=== PATIENT | female | born 2000 | race American Indian/Alaskan Native ===

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

== ENCOUNTER 2018-11-25 18:02 | Emergency (ER) | payer MEDICAID ==
--- NOTE | 2018-11-25 18:34 | EDM.PDOC ---
ED HPI GENERAL MEDICAL PROBLEM - General Source of Information: Reports: Patient, RN, RN Notes Reviewed History Limitations: Reports: No Limitations - History of Present Illness Onset: Today, Sudden Abdomen Pain Score (Numeric/FACES): 8 <Faby Tai - Last Filed: 11/25/18 18:49> <Jonathon Bhatiahen - Last Filed: 11/25/18 20:58> - General Stated Complaint: ALOT OF PAIN Time Seen by Provider: 11/25/18 18:34 - History of Present Illness INITIAL COMMENTS - FREE TEXT/NARRATIVE: Pt to ER with c/o low abdominal pain. Patient rates pain /10. States the pain is in the wraps around the lower abdomen and the lower back. States her LMP was September 22, making her EDC June 22. States no vaginal bleeding. Denies fever, chills, diarrhea. Last BM was this am and was normal for her. Admits to nausea and vomiting this morning. Admits to frequency with urination. Denies recent intercourse. States she has an appointment in the clinic tomorrow but states she decided to come in [facility]. (Faby Tai) - Related Data Allergies Allergy/AdvReac Type Severity Reaction Status Date / Time oxycodone Allergy Itching Verified 12/26/17 14:54 Home Meds: Home Meds . [No Known Home Meds] 12/26/17 [History] Past Medical History - Past Health History Medical/Surgical History: Denies Medical/Surgical History HEENT History: Reports: Other (See Below) Other HEENT History: frequent tonsilitis Cardiovascular History: Reports: None Respiratory History: Reports: None Gastrointestinal History: Reports: None Genitourinary History: Reports: [employer] HE[employer] History: Reports: None Musculoskeletal History: Reports: None Neurological History: Reports: None Psychiatric History: Reports: None Endocrine/Metabolic History: Reports: Obesity/BMI 30+ Hematologic History: Reports: None Immunologic History: Reports: None Oncologic (Cancer) History: Reports: None Dermatologic History: Reports: None - Infectious Disease History Infectious Disease History: Reports: None - Past Surgical History Head Surgeries/Procedures: Reports: None HEENT Surgical History: Reports: Adenoidectomy, Tonsillectomy <Faby Tai - Last Filed: 11/25/18 18:49> Social & Family History - Family History Family Medical History: Noncontributory - Caffeine Use Caffeine Use: Reports: None - Living Situation & Occupation Living situation: Reports: Single, Alone <AbidaRogerFaby - Last Filed: 11/25/18 18:49> ED ROS GENERAL - Review of Systems Review Of Systems: ROS reveals no pertinent complaints other than HPI. <AbidaFaby - Last Filed: 11/25/18 18:49> ED EXAM - Physical Exam Exam: See Below Exam Limited By: No Limitations General Appearance: Alert, WD/WN, Mild Distress Eye Exam: Bilateral Eye: EOMI, Normal Inspection Ears: Normal External Exam, Hearing Grossly Normal Nose: Normal Inspection Throat/Mouth: Normal Inspection, Normal Voice, No Airway Compromise Head: Atraumatic, Normocephalic Neck: Normal Inspection Respiratory/Chest: No Respiratory Distress, Lungs Clear, Normal Breath Sounds, No Accessory Muscle Use, Chest Non-Tender Cardiovascular: Normal Peripheral Pulses, Regular Rate, Rhythm, No Edema, No Gallop, No JVD, No Murmur, No Rub GI/Abdominal Exam: Normal Bowel Sounds, Soft, Non-Tender, No Organomegaly, No Distention, No Abnormal Bruit, No Mass, Pelvis Stable Rectal Exam: Deferred Back Exam: Normal Inspection, Full Range of Motion, CVA Tenderness (L), CVA Tenderness (R), Other (tenderness lower back) Extremities: Normal Inspection, Normal Range of Motion, Non-Tender, Normal Capillary Refill, No Pedal Edema Neurological: Alert, Oriented, CN II-XII Intact, Normal Cognition, Normal Gait, Normal Reflexes, No Motor/Sensory Deficits Psychiatric: Normal Affect, Normal Mood Skin Exam: Warm, Dry, Intact, Normal Color, No Rash Lymphatic: No Adenopathy <AbidaFaby - Last Filed: 11/25/18 18:49> Course <TaiFaby - Last Filed: 11/25/18 18:49> <Malvin Bhatia - Last Filed: 11/25/18 20:58> - Vital Signs Last Recorded V/S: Last Vital Signs Temp 37.7 C 11/25/18 18:34 Pulse 110 H 11/25/18 18:34 Resp 20 11/25/18 18:34 BP 143/89 H 11/25/18 18:34 Pulse Ox 100 11/25/18 18:34 - Orders/Labs/Meds Orders: Active Orders 24 hr Category Date Time Status OB Ltd 1 or More Fetus [US] Urgent Exams 11/25/18 19:37 Taken CULTURE URINE [RM] Stat Lab 11/25/18 18:42 Received Labs: Laboratory Tests 11/25/18 11/25/18 11/25/18 Range/Units 18:42 18:42 18:42 WBC (5.0-10.0) 10^3/uL RBC (4.2-5.4) 10^6/uL Hgb (12.0-16.0) g/dL Hct (37.0-47.0) % MCV (80-100) fL MCH (27.0-34.0) pg MCHC (33.0-35.0) g/dL Plt Count (150-450) 10^3/uL Neut % (Auto) (42.2-75.2) % Lymph % (Auto) (20.5-50.1) % [place] % (Auto) (2-8) % Eos % (Auto) (1.0-3.0) % Baso % (Auto) (0.0-1.0) % Sodium (135-145) mmol/L Potassium (3.6-5.0) mmol/L Chloride (101-111) mmol/L Carbon Dioxide (21.0-31.0) mmol/L Anion Gap BUN (7-18) mg/dL Creatinine (0.6-1.3) mg/dL Est Cr Clr Drug Dosing mL/min Estimated GFR (MDRD) BUN/Creatinine Ratio Glucose (74-105) mg/dL Calcium (8.4-10.2) mg/dl Total Bilirubin (0.2-1.0) mg/dL AST (10-42) IU/L ALT (10-60) IU/L Alkaline Phosphatase (42-121) IU/L Total Protein (6.7-8.2) g/dl Albumin (3.2-5.5) g/dl Globulin Albumin/Globulin Ratio HCG, Quant (0-25) mIU/ml Beta HCG, Quant mIU/ml Urine Color Yellow (YELLOW) Urine Appearance Slightly cloudy (CLEAR) Urine pH 7.0 (5.0-9.0) Ur Specific [place] 1.010 (1.005-1.030) Urine Protein Negative (NEGATIVE) Urine Glucose (UA) Negative (NEGATIVE) Urine Ketones Negative (NEGATIVE) Urine Occult Blood Negative (NEGATIVE) Urine Nitrite Negative (NEGATIVE) Urine Bilirubin Negative (NEGATIVE) Urine Urobilinogen 0.2 (0.2-1.0) mg/dL Ur Leukocyte Esterase Small H (NEGATIVE) Urine RBC Not seen /HPF Urine WBC 0-5 (0-5/HPF) /HPF Ur Epithelial Cells Few (NOT SEEN) /HPF Urine Bacteria Few (0-FEW/HPF) /HPF Urine Mucus Few H (NOT SEEN) /LPF Urine HCG, Qual Positive Urine Opiates Screen Negative (NEGATIVE) Ur Oxycodone Screen Negative (NEGATIVE) Urine Methadone Screen Negative (NEGATIVE) Ur Barbiturates Screen Negative (NEGATIVE) U Tricyclic Antidepress Negative (NEGATIVE) Ur Phencyclidine Scrn Negative (NEGATIVE) Ur Amphetamine Screen Negative (NEGATIVE) U Methamphetamines Scrn Negative (NEGATIVE) Urine MDMA Screen Negative (NEGATIVE) U Benzodiazepines Scrn Negative (NEGATIVE) Urine Cocaine Screen Negative (NEGATIVE) U Marijuana (THC) Screen Negative (NEGATIVE) 11/25/18 11/25/18 11/25/18 Range/Units 18:47 18:47 18:47 WBC 7.9 (5.0-10.0) 10^3/uL RBC 4.85 (4.2-5.4) 10^6/uL Hgb 13.2 (12.0-16.0) g/dL Hct 39.1 (37.0-47.0) % MCV 80.6 D (80-100) fL MCH 27.2 (27.0-34.0) pg MCHC 33.8 (33.0-35.0) g/dL Plt Count 362 (150-450) 10^3/uL Neut % (Auto) 59.7 (42.2-75.2) % Lymph % (Auto) 26.6 (20.5-50.1) % [place] % (Auto) 12.2 H (2-8) % Eos % (Auto) 1.4 (1.0-3.0) % Baso % (Auto) 0.1 (0.0-1.0) % Sodium 137 (135-145) mmol/L Potassium 4.3 (3.6-5.0) mmol/L Chloride 105 (101-111) mmol/L Carbon Dioxide 25.0 (21.0-31.0) mmol/L Anion Gap 11.3 BUN 6 L (7-18) mg/dL Creatinine 0.5 L (0.6-1.3) mg/dL Est Cr Clr Drug Dosing 181.05 mL/min Estimated GFR (MDRD) > 60 BUN/Creatinine Ratio 12.00 Glucose 86 (74-105) mg/dL Calcium 9.1 (8.4-10.2) mg/dl Total Bilirubin 0.6 (0.2-1.0) mg/dL AST 15 (10-42) IU/L ALT 18 (10-60) IU/L Alkaline Phosphatase 23 L (42-121) IU/L Total Protein 7.5 (6.7-8.2) g/dl Albumin 3.8 (3.2-5.5) g/dl Globulin 3.7 Albumin/Globulin Ratio 1.03 HCG, Quant > 1359 H (0-25) mIU/ml Beta HCG, Quant 248337 mIU/ml Urine Color (YELLOW) Urine Appearance (CLEAR) Urine pH (5.0-9.0) Ur Specific [place] (1.005-1.030) Urine Protein (NEGATIVE) Urine Glucose (UA) (NEGATIVE) Urine Ketones (NEGATIVE) Urine Occult Blood (NEGATIVE) Urine Nitrite (NEGATIVE) Urine Bilirubin (NEGATIVE) Urine Urobilinogen (0.2-1.0) mg/dL Ur Leukocyte Esterase (NEGATIVE) Urine RBC /HPF Urine WBC (0-5/HPF) /HPF Ur Epithelial Cells (NOT SEEN) /HPF Urine Bacteria (0-FEW/HPF) /HPF Urine Mucus (NOT SEEN) /LPF Urine HCG, Qual Urine Opiates Screen (NEGATIVE) Ur Oxycodone Screen (NEGATIVE) Urine Methadone Screen (NEGATIVE) Ur Barbiturates Screen (NEGATIVE) U Tricyclic Antidepress (NEGATIVE) Ur Phencyclidine Scrn (NEGATIVE) Ur Amphetamine Screen (NEGATIVE) U Methamphetamines Scrn (NEGATIVE) Urine MDMA Screen (NEGATIVE) U Benzodiazepines Scrn (NEGATIVE) Urine Cocaine Screen (NEGATIVE) U Marijuana (THC) Screen (NEGATIVE) - Re-Assessments/Exams Free Text/Narrative Re-Assessment/Exam: 11/25/18 20:55 results discussed with pt who is feeling fine right now. states she got worried and grandma made her. (Malvin Bhatia) Departure <Faby Tai - Last Filed: 11/25/18 18:49> - Departure Time of Disposition: 20:57 Condition: Good <Malvin Bhatia - Last Filed: 11/25/18 20:58> - Departure Disposition: Home, Self-Care 01 Clinical Impression: Intrauterine , related abdominal pain of lower quadrant, antepartum - Discharge Information Instructions: Abdominal Pain During Forms: ED Department Discharge Additional Instructions: 1) rest 2) avoid bending lifting straining next 4 to 5 days 3) follow up at clinic 4) recheck if there is any change or concern - My Orders Last 24 Hours: My Active Orders 11/25/18 19:37 OB Ltd 1 or More Fetus [US] Urgent - Assessment/Plan Last 24 Hours: My Active Orders 11/25/18 19:37 OB Ltd 1 or More Fetus [US] Urgent
[2018-11-25 18:36] VITALS: BP 143/89; PULSE 110
[2018-11-25 19:14] LABS: ANION GAP 11.3; CHLORIDE,CL 105 mmol/L (101-111); SODIUM,NA 137 mmol/L (135-145)
== END 2018-11-25 21:06 | disposition home or self-care (01) ==
LOC: DL.ED 18:02
DX: O26.891 Other specified pregnancy related conditions, first trimester (principal); R10.30 Lower abdominal pain, unspecified; M54.5 Low back pain; O99.211 Obesity complicating pregnancy, first trimester; Z88.6 Allergy status to analgesic agent; Z98.890 Other specified postprocedural states; Z3A.10 10 weeks gestation of pregnancy
CPT/HCPCS: 36415; 76815; 80053; 80305-QW; 81001; 81025; 84702; 85025; 87086; 87088; 87186; 99284-25

== ENCOUNTER 2019-06-22 11:53 | Inpatient (IN) | payer MEDICAID ==
[~2019-06-22 11:53] MED LIST: Acetaminophen 325 MG Tab PO PRN; Carboprost Tromethamine 250 MCG/1 ML Amp IM PRN; Lactated Ringers 1,000 ML IV ONE; Lidocaine 1% 30 ML SDV INJECT PRN; Methylergonovine 0.2 MG/1 ML Amp IM PRN; Misoprostol 400 MCG (4 X 100 MCG TAB) RECTAL PRN; Ondansetron 4 MG/2 ML SDV IVPUSH PRN; Oxytocin/Normal Saline 30 UNIT/500 ML BAG IV SCH; Penicillin G Potassium 3 MILLUNITS in Sodium Chloride 0.9% 100 ML IV SCH; Penicillin G Potassium 5 MILLUNITS in Sodium Chloride 0.9% 100 ML IV ONE; Sodium Chloride 0.9% 10 ML Syringe FLUSH PRN; Tranexamic Acid 1,000 MG in Sodium Chloride 0.9% 100 ML IV PRN; fentaNYL 100 MCG/2 ML SDV IVPUSH PRN
[2019-06-22] MEDS ORDERED: Penicillin G Potassium 5 MILLUNITS in Sodium Chloride 0.9% 100 ML IV ONE (13:00)
[2019-06-22] MEDS: Lactated Ringers 1,000 ML IV SCH ×2 (13:15→17:15)
[2019-06-22] MEDS: Misoprostol 25 MCG (1/4 of 100 MCG) Tab VAG PRN ×2 (14:15→18:30)
[2019-06-22] MEDS: Penicillin G Potassium 3 MILLUNITS in Sodium Chloride 0.9% 100 ML IV SCH ×2 (17:51→21:35)
[2019-06-22] MEDS ORDERED: hydrOXYzine HCl 25 MG Tab PO PRN (21:39)
[2019-06-22] MEDS ORDERED: Oxytocin/Normal Saline 30 UNIT/500 ML BAG IV SCH (21:45)
[2019-06-23] MEDS: Penicillin G Potassium 3 MILLUNITS in Sodium Chloride 0.9% 100 ML IV SCH ×3 (01:03→08:52)
[2019-06-23] MEDS: Lactated Ringers 1,000 ML IV SCH ×2 (01:16→08:54)
[2019-06-23] MEDS ORDERED: EPINEPHrine 1 MG/1 ML Amp ONE ×2 (01:25→01:30)
[2019-06-23] MEDS ORDERED: fentaNYL 100 MCG/2 ML SDV ONE ×2 (01:26→07:46)
--- NOTE | 2019-06-23 03:25 | PN ---
DATE: 06/23/2019 TIME: 2:45 a.m. SUBJECTIVE: Induction day #2, the patient has been tolerating labor as expected and has been in the tub for pain relief and received a dose of IV fentanyl and then an intrathecal was placed about 45 minutes ago with 30 mcg of fentanyl and epinephrine. However, the patient is still able to move her legs complaining of still feeling the contractions and pelvic pressure stronger than she feels is acceptable and only pain relief of about 25%. We called the professor of forest planning back to re-evaluate and he is going to repeat the procedure and add a different medication. OBJECTIVE: General: The patient is mildly uncomfortable with contractions, but certainly not writhing, rocking in pain, and asking for a like she was earlier. Vital Signs: Blood pressure is 134/94, pulse 106, O2 saturations 94% on room air. Obstetrics: heart tones are tracing at a baseline of 125 beats per minute with moderate [id number] variability. Accelerations are noted. [place] showing contractions every minute to 2 minutes. Cervix 4.5 cm, 90% effaced, -2 station. I can feel the baby's head and I do not feel a bag of water. Did have some clear drainage on my gloves, so I suspect that she has had a spontaneous rupture of membranes. ASSESSMENT: 1. A 40 and 4/7 weeks' intrauterine . 2. Group B strep positive. 3. Anemia of . 4. Status post intrathecal and still feeling discomfort. PLAN: After the repeat intrathecal, we will see how she does. Discussed with her that option for section because of pain is not something that is done and unfortunately she would have to tolerate labor despite that and so hopefully this re-dosing will help and the patient can get some rest. We will augment with Pitocin if needed should her contractions space out or she not make adequate cervical change. Her questions at this time have been answered. MOD /[id number] MTDD
[2019-06-23] MEDS ORDERED: ePHEDrine 50 MG/ML SDV IV PRN (03:52)
[2019-06-23] MEDS ORDERED: Acetaminophen 325 MG Tab PO PRN (10:33)
[2019-06-23] MEDS ORDERED: Benzocaine/Menthol 20%-0.5% Spray 56 GM Canister TOP PRN (10:33)
[2019-06-23] MEDS ORDERED: Tranexamic Acid 1,000 MG in Sodium Chloride 0.9% 100 ML IV PRN (10:33)
[2019-06-23] MEDS ORDERED: Carboprost Tromethamine 250 MCG/1 ML Amp IM PRN (10:33)
[2019-06-23] MEDS ORDERED: Misoprostol 400 MCG (4 X 100 MCG TAB) RECTAL PRN (10:33)
[2019-06-23] MEDS ORDERED: Simethicone 80 MG Tab.Chew PO PRN (10:33)
[2019-06-23] MEDS: Ibuprofen 800 MG Tab PO PRN ×2 (12:28→20:07)
[2019-06-23] MEDS: Docusate Sodium 100 MG Cap PO PRN (20:07)
[2019-06-23] MEDS: Ferrous Sulfate 325 MG Tab PO SCH (20:07)
[2019-06-23] MEDS: Acetaminophen/HYDROcodone 325-5 MG Tab PO PRN (20:07)
[2019-06-24] MEDS: Acetaminophen/HYDROcodone 325-5 MG Tab PO PRN ×5 (04:49→20:42)
[2019-06-24] MEDS: Ibuprofen 800 MG Tab PO PRN ×3 (04:49→20:43)
[2019-06-24] MEDS: Ferrous Sulfate 325 MG Tab PO SCH ×2 (08:22→20:41)
[2019-06-24] MEDS: Prenatal Multivitamin with Calcium/Folic Acid/Iron Tab PO SCH (08:22)
[2019-06-24] MEDS: Docusate Sodium 100 MG Cap PO PRN ×2 (08:22→20:41)
--- NOTE | 2019-06-24 12:45 | PCM48HPAN ---
Post Anesthesia Note - EVALUATION WITHIN 48HRS OF ANESTHETIC Patient Participated in Evaluation: Yes Respiratory Function Stable: Yes Airway Patent: Yes Cardiovascular Function Stable: Yes Hydration Status Stable: Yes Pain Control Satisfactory: No (c/o back pain and slight headache. Being managed with meds.) Nausea and Vomiting Control Satisfactory: Yes Mental Status Recovered: Yes Vital Signs: Last Vital Signs Temp 98.4 F 06/24/19 08:00 Pulse 79 06/24/19 08:00 Resp 16 06/24/19 08:00 BP 123/67 06/24/19 08:00 Pulse Ox 98 06/24/19 08:00 - COMMENTS/OBSERVATIONS Free Text/Narrative:: Post IT times 2 for labor analgesia. Complaining of back pain with a slight headache. Resting in bed with cool compress on forehead. Will continue to monitor.
--- NOTE | 2019-06-24 12:46 | DEL ---
DATE: 06/23/2019 PREPROCEDURE DIAGNOSES: 1. Forty and 4/7 weeks' intrauterine by 16-week ultrasound. 2. 1, para 0. 3. Blood type O positive, rubella immune, group B Strep positive bacteriuria. 4. Low back pain in . 5. Anemia of . 6. History of marijuana use. 7. Nausea and vomiting in early . 8. Bacterial vaginosis 1st trimester. 9. Urinary tract infection 3rd trimester. POSTPROCEDURE DIAGNOSES: 1. Forty and 4/7 weeks' intrauterine by 16-week ultrasound. 2. 1, para 1-0-0-1, status post spontaneous vaginal delivery with earlier assistance in stage II for maternal exhaustion and need to improve decent and first-degree laceration repair. 3. Blood type O positive, rubella immune, group B Strep positive bacteriuria. 4. Low back pain in . 5. Anemia of . 6. History of marijuana use. 7. Nausea and vomiting in early . 8. Bacterial vaginosis 1st trimester. 9. Urinary tract infection 3rd trimester. BRIEF HISTORY: A is a 19-year-old female brought to the hospital yesterday for induction of labor due to postdates and concern for a large baby. So, she was initiated with a couple of doses of Cytotec and then switched over to IV Pitocin. She had spontaneous rupture of membranes and received 2 total intrathecal for anesthesia. She progressed through labor quite nicely and was in stage I for probably about 11 hours, stage II was 1 hour, stage III was 23 minutes. When the patient started pushing, she initially was doing okay, but by 30 minutes it was clear that she was not going to be putting forth appropriate effort to expect vaginal delivery, so I was called over to assist with coaching. Had to be quite blunt with the patient about her need to contribute sufficient effort. I did offer vacuum assistance to see if we can get the baby delivered down faster. Baby had a lot of hair, so we had 2 true pop offs, and after that inadequate suction to maintain. Therefore, after the baby was , we discontinued vacuum assist. The operating room crew was in-house and aware of what we were doing, the bladder had been emptied. We had given the patient options for continued efforts and laboring down. She was becoming more physically fatigued as well as mentally fatigued and unable to really hold herself emotionally together well. Kiwi vacuum was used and kept in the green zone when it was applied and it was on for a total of about 10 minutes. We were only able to pull through 5 contractions because of the pop-offs. The patient had been verbally consented prior to procedure and understood increased risk of vaginal lacerations, scalp lacerations, bleeding for the baby, bleeding for herself, increased risk of shoulder dystocia, increased risk of operative delivery, and had verbalized understanding. Nurses were in the room to witness that discussion, and exit strategy was available. After we got the baby at least to , mother was able to then put forth better effort and ultimately deliver spontaneously. PROCEDURE DETAILS: With the patient in dorsal lithotomy position, she delivered a viable female infant in the OA position over intact perineum. The baby was dried and stimulated and placed upon mother's abdomen. After a delay, 3-vessel umbilical cord was doubly clamped, cut, cord blood sample obtained, and then attempted to deliver placenta, but it was not coming readily. Therefore, labia and vagina inspected. There was a first-degree laceration that required repair which was performed with 3-0 Vicryl and no additional anesthesia was needed, which was a simple running stitch with approximately 4 throws and she tolerated that well. The placenta was then delivered with aggressive uterine massage and gentle cord traction at 23 minutes, inspected and intact. FINDINGS: Normal-appearing placenta. First-degree laceration. Term female infant, scores 8 and 9. Weight 3920g and 20 inches long. COMPLICATIONS: None. ESTIMATED BLOOD LOSS: 250 mL. DISPOSITION: Mother and baby to stay in the room to initiate at this time. [facility] /[id number] [place]
--- NOTE | 2019-06-24 16:23 | PN ---
DATE: 06/24/2019 SUBJECTIVE: Post delivery day #1. The patient has been doing well. She has been ambulating, tolerating a regular diet, voiding without difficulties. Has not yet had a bowel movement. Reports that the bleeding is moderate. No chest pain or shortness of breath. Breast milk seems to be coming in and she is having a little bit of difficulty with , primarily due to some flat nipples, but overall nurses are helping with her and the breast shield seems to be working as well. Also, reports some back pain. It should be noted the patient had approximately 5 or 6 needle punctures for her essentially 2-stage first intrathecal and 2nd intrathecal, had some back pain even preexisting prior to delivery. Overnight, she has had hydrocodone, ice packs, K-pad and other modalities to help managing things. She is anticipating staying through until tomorrow so she can get some additional help with before going home. PHYSICAL EXAMINATION: General: Pleasant patient, in no acute distress. Vital Signs: Temperature is 98.4, pulse 79, blood pressure 123/67, respiratory rate of 16, and O2 saturations 98% on room air. Heart: Regular without murmur. Lungs: Clear to auscultation bilaterally. Abdomen: Soft and nontender. Fundus is firm and below the umbilicus. Extremities: Trace edema. No erythema or tenderness noted. LABORATORY DATA: Hemoglobin down to 9.2, platelets 303. ASSESSMENT: 1. Post vaginal delivery day #1. 2. Anemia of and acute blood loss. 3. Back pain, acute on chronic. 4. History of marijuana use. 5. mother. PLAN: Continue routine cares with additional attention to helping her with her back pain and . Otherwise, anticipate discharge home tomorrow. We will see if she ends up needing to go home with a prescription of hydrocodone or not. Her grandmother will continue to stay with her here in the hospital, and all of their questions were answered. [facility] /[id number] [place]
[2019-06-25] MEDS: Acetaminophen/HYDROcodone 325-5 MG Tab PO PRN (06:29)
[2019-06-25] MEDS: Ibuprofen 800 MG Tab PO PRN (06:29)
[2019-06-25] MEDS: Ferrous Sulfate 325 MG Tab PO SCH (08:37)
[2019-06-25] MEDS: Prenatal Multivitamin with Calcium/Folic Acid/Iron Tab PO SCH (08:37)
[2019-06-25] MEDS: Docusate Sodium 100 MG Cap PO PRN (08:37)
[2019-06-25 09:16] VITALS: BP 147/90; PULSE 98
--- NOTE | 2019-06-25 10:27 | DISCH ---
ADMITTING DIAGNOSES: 1. A 40-3/7 weeks' intrauterine by a 16-week ultrasound. 2. 1, para 0. 3. Low back pain of . 4. Anemia of . 5. Blood type O positive, rubella immune, and group B Streptococcus-positive bacteriuria. 6. Marijuana use in the 1st trimester. 7. Nausea and vomiting of . 8. Obesity, body mass index of greater than 39. 9. Urinary tract infection in the 3rd trimester. DISCHARGE DIAGNOSES: 1. Post spontaneous vaginal delivery with a first-degree laceration repair at 40-4/7 weeks. 2. 1, now para 1-0-0-1. 3. Low back pain of . 4. Anemia of . 5. Blood type O positive, rubella immune, and group B Streptococcus-positive bacteriuria. 6. Marijuana use in the 1st trimester. 7. Nausea and vomiting of . 8. Obesity, body mass index of greater than 39. 9. Urinary tract infection in the 3rd trimester. 10.Acute on chronic back pain. 11.Headache. 12.Maternal exhaustion as need for vacuum assistance with descent despite ultimate spontaneous delivery. BRIEF HISTORY: A 19-year-old female brought into the hospital for induction of labor due to concern of potential for having a larger baby and being post dates. Induction was carried out with Cytotec, followed by Pitocin. She went on to spontaneously rupture on her own. She had 2 intrathecals, but technically, the first one was placed in 2 separate portions, and the patient had probably 6 dural punctures or more superficial back punctures at least. After 1/2 hour pushing, the patient was mentally exhausted, physically exhausted, and feeling that she could not carry on; therefore, vacuum assistance was used to help with descent; however, there were 2 pop-offs and 1 slip- off essentially, this baby had copious amounts of hair, and the patient ultimately delivered spontaneously and had a first-degree laceration repair without any additional anesthesia. The placenta took 23 minutes to deliver with need for a significant amount of force to help it express, and the patient tolerated that very well, signifying that her intrathecal was working quite well despite her insistence that she was in tremendous pain during labor. After delivery, the patient has done pretty well. She is not ambulating as much as we would like her to. is coming along with some help. The baby tends to only nurse well if there is milk on the nipple already. She has had problems with her back pain, requiring ice packs, heat packs, and some hydrocodone today. She is also having significant problems with some headache but no red flag symptoms with that headache. Not consistent with spinal headache. The patient's room was adjacent to some ongoing construction and door alarm, so there was extra noise. She is also not comfortable on the hospital bed or with the hospital pillows and reports a lot of the pain has been in her upper back and neck from how she was straining with pushing, so the headache is likely multifactorial. Otherwise, she has had a small bowel movement. She has had some gaseous distention. No nausea or vomiting. No chest pain or shortness of breath. Voiding without difficulties and feeling ready to go home. DISCHARGE CONDITION: Good. PHYSICAL EXAMINATION: Vital Signs: Temperature is 98.2, pulse 92, blood pressure 127/69, respiratory rate of 20, and O2 saturation is 100% on room air. Heart: Regular without murmur. Lungs: Clear to auscultation bilaterally. Abdomen: Soft. Mildly distended. Positive bowel sounds throughout. Fundus is firm and below the umbilicus. Extremities: Trace edema bilaterally. No erythema or tenderness is noted. LABORATORY DATA: Hemoglobin 9.2 and platelets 303. DISPOSITION: Home with family. MEDICATIONS: 1. Hydrocodone 5/325, 1 tablet twice a day as needed for back pain or headache. 2. Ibuprofen 800 mg every 8 hours as needed for pain. 3. Tylenol 650 mg every 6 hours as needed for pain. 4. Colace 100 mg twice daily as needed for constipation. 5. Simethicone 80 mg 3 times daily as needed for gas pains. 6. vitamin 1 tablet p.o. daily. 7. Iron 325 mg twice daily. INSTRUCTIONS: Routine post vaginal delivery instructions for mother are provided, and she understands the reasons to call or return to Labor and Delivery or the clinic if any issues should arise. FOLLOWUP: We will check in on her when she brings the baby in on Thursday for the 2-day post-hospital check as well as the baby's 6-zzdi-il-age visit and plan on seeing her for her own 6-week exam along with the baby's 6- to 8-week well-baby visit. Her questions have been answered. [facility] /[id number] [place]
== END 2019-06-25 09:22 | disposition home or self-care (01) | DRG 806 ==
LOC: DL.OBCHECK 11:53 → DL.OB 11:55 → OBSVTOIN 06-23 10:00
PROVIDERS: ADMIT Family Medicine; ATTEND Family Medicine
PROC: 10D07Z6 Extraction of Products of Conception, Vacuum, Via Natural or Artificial Opening (ICD-10-PCS; principal; 2019-06-23)
PROC: 0HQ9XZZ Repair Perineum Skin, External Approach (ICD-10-PCS; 2019-06-23)
DX: O48.0 Post-term pregnancy (principal); D62 Acute posthemorrhagic anemia; Z37.0 Single live birth; Z3A.40 40 weeks gestation of pregnancy; O70.0 First degree perineal laceration during delivery; O99.02 Anemia complicating childbirth; O99.214 Obesity complicating childbirth; E66.9 Obesity, unspecified; O99.89 Other specified diseases and conditions complicating pregnancy, childbirth and the puerperium; M54.5 Low back pain; Z28.82 Immunization not carried out because of caregiver refusal
CPT/HCPCS: 36415; 51701; 59409; 85027; A9270-GY; J0171; J2405; J2540; J2590; J3010; J7050; J7120

== ENCOUNTER 2019-09-20 06:55 | Emergency (ER) | payer MEDICAID ==
[2019-09-20 07:05] VITALS: BP 159/101; PULSE 132
--- NOTE | 2019-09-20 07:23 | EDM.PDOC ---
ED HPI GENERAL MEDICAL PROBLEM - General Chief Complaint: ENT Problem Stated Complaint: SWOLLEN EARS Time Seen by Provider: 09/20/19 07:00 Source of Information: Reports: Patient History Limitations: Reports: No Limitations - History of Present Illness INITIAL COMMENTS - FREE TEXT/NARRATIVE: This 19 yo female patient reports to the ED with right ear pain that started this morning. The patient also reports her left ear has started to bother her. The patient reports she did take some ibuprofen with some symptomatic relief. Onset: Today Duration: Constant Location: Reports: Head (Right ear and partial left ear) Quality: Reports: Ache, Stabbing Severity: Moderate Improves with: Reports: None Worsens with: Reports: None Context: Reports: Other Associated Symptoms: Reports: No Other Symptoms - Related Data Allergies Allergy/AdvReac Type Severity Reaction Status Date / Time oxycodone Allergy Itching Verified 09/20/19 07:02 Home Meds: Home Meds #103/Iron Fumarate/Fa [ ] 1 tab PO DAILY 04/11/19 [History] Ferrous Sulfate [Iron] 1 tab PO DAILY 06/20/19 [History] Acetaminophen/HYDROcodone [[place] 325-5 MG] 1 tab PO BID PRN #10 tablet 06/25/19 [Rx] Benzocaine/Menthol [Dermoplast Pain Relief [place]] 1 film TOP Q4H PRN canister 06/25/19 [Rx] Docusate Sodium [Colace] 100 mg PO BID PRN cap 06/25/19 [Rx] Ibuprofen [Motrin] 800 mg PO Q8H PRN tablet 06/25/19 [Rx] Simethicone 80 mg PO Q4H PRN tab.chew 06/25/19 [Rx] witch Yang [Medi-Pads] 1 each TOP Q4HR PRN pad 06/25/19 [Rx] Past Medical History - Past Health History Medical/Surgical History: Denies Medical/Surgical History HEENT History: Reports: None Other HEENT History: frequent tonsilitis Cardiovascular History: Reports: None Respiratory History: Reports: None Gastrointestinal History: Reports: None Genitourinary History: Reports: STD, UTI, Recurrent 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: Musculoskeletal History: Reports: None Neurological History: Reports: None Psychiatric History: Reports: None Endocrine/Metabolic History: Reports: Obesity/BMI 30+ Hematologic History: Reports: Anemia Immunologic History: Reports: None Oncologic (Cancer) History: Reports: None Dermatologic History: Reports: None - Infectious Disease History Infectious Disease History: Reports: None - Past Surgical History Head Surgeries/Procedures: Reports: None HEENT Surgical History: Reports: Adenoidectomy, Tonsillectomy Social & Family History - Family History Family Medical History: Noncontributory - Tobacco Use Smoking Status *Q: Never Smoker Second Hand Smoke Exposure: No - Caffeine Use Caffeine Use: Reports: None - Recreational Drug Use Recreational Drug Use: No - Living Situation & Occupation Living situation: Reports: Single, Alone ED ROS ENT - Review of Systems Review Of Systems: Comprehensive ROS is negative, except as noted in HPI. ED EXAM, ENT - Physical Exam Exam: See Below Exam Limited By: No Limitations General Appearance: Alert, WD/WN, Mild Distress Eye Exam: Bilateral Eye: EOMI, Normal Inspection, PERRL Ears: Canal Swelling (right), TM Bulging (right), TM Erythema (right) Nose: Normal Inspection, Normal Mucousa, No Blood Mouth/Throat: Normal Inspection, Normal Gums, Normal Lips, Normal Oropharynx, Normal Teeth Head: Atraumatic, Normocephalic Neck: Normal Inspection, Supple, Non-Tender, Full Range of Motion Respiratory/Chest: No Respiratory Distress, Lungs Clear, Normal Breath Sounds, No Accessory Muscle Use, Chest Non-Tender Cardiovascular: Normal Peripheral Pulses, Regular Rate, Rhythm, No Edema, No Gallop, No JVD, No Murmur, No Rub GI/Abdominal: Normal Bowel Sounds, Soft, Non-Tender, No Organomegaly, No Distention, No Abnormal Bruit, No Mass (Female) Exam: Deferred Rectal (Female) Exam: Deferred Back: Normal Inspection, Full Range of Motion Extremities: Normal Inspection, Normal Range of Motion, Non-Tender, No Pedal Edema, Normal Capillary Refill Neurological: Alert, Oriented, CN II-XII Intact, Normal Cognition, Normal Gait, Normal Reflexes, No Motor/Sensory Deficits Psychiatric: Normal Affect, Normal Mood Skin: Warm, Dry, Intact, Normal Color, No Rash Lymphatic: No Adenopathy Course - Vital Signs Last Recorded V/S: Last Vital Signs Temp 36.7 C 09/20/19 07:05 Pulse 132 H 09/20/19 07:05 Resp 18 09/20/19 07:05 BP 159/101 H 09/20/19 07:05 Pulse Ox 99 09/20/19 07:05 Departure - Departure Time of Disposition: 07:27 Disposition: Home, Self-Care 01 Condition: Fair Clinical Impression: Otitis media Qualifiers: Otitis media type: serous Chronicity: acute Laterality: right Recurrence: non-recurrent Qualified Code(s): H65.01 - Acute serous otitis media, right ear Otitis externa Qualifiers: Otitis externa type: diffuse Chronicity: acute Laterality: right Qualified Code(s): H60.311 - Diffuse otitis externa, right ear - Discharge Information *PRESCRIPTION DRUG MONITORING PROGRAM REVIEWED*: Not Applicable *COPY OF PRESCRIPTION DRUG MONITORING REPORT IN PATIENT ZAY: Not Applicable Instructions: Ear Drops, Adult, [id number], Otitis Media, Adult, [id number] Care Plan Goals: The patient was advised of the examination results during the visit. The patient was given a script for Augmentin (500/125) to take 1 by mouth 2 times per day for 10 days and Cortisporin to apply 2 drops into the affected ear 4 times per day for 10 days. The patient may take Tylenol or ibuprofen as directed for temporary symptom relief. If the patient has any additional symptoms or concerns, the patient should visit her primary care facility or return to the emergency department. Sepsis Event Note (ED) - Evaluation Sepsis Screening Result: No Definite Risk - Focused Exam Vital Signs: Vital Signs Temp Pulse Resp BP Pulse Ox 09/20/19 07:05 36.7 C 132 H 18 159/101 H 99
== END 2019-09-20 07:32 | disposition home or self-care (01) ==
LOC: DL.ED 06:55
DX: H65.01 Acute serous otitis media, right ear (principal); H60.311 Diffuse otitis externa, right ear; Z88.5 Allergy status to narcotic agent; Z79.899 Other long term (current) drug therapy; E66.9 Obesity, unspecified; Z68.39 Body mass index [BMI] 39.0-39.9, adult
CPT/HCPCS: 99282

== ENCOUNTER 2021-09-26 04:03 | Emergency (ER) | payer MEDICAID ==
[2021-09-26 04:16] VITALS: BP 140/88; PULSE 97
== END 2021-09-26 06:02 | disposition home or self-care (01) ==
LOC: DL.ED 04:03
DX: O99.513 Diseases of the respiratory system complicating pregnancy, third trimester (principal); J06.9 Acute upper respiratory infection, unspecified; Z3A.00 Weeks of gestation of pregnancy not specified; E66.9 Obesity, unspecified; Z68.30 Body mass index [BMI] 30.0-30.9, adult; Z88.5 Allergy status to narcotic agent; Z79.899 Other long term (current) drug therapy; Z20.822 Contact with and (suspected) exposure to COVID-19
CPT/HCPCS: 99283; U0002

== ENCOUNTER 2021-12-04 07:01 | Inpatient (IN) | payer MEDICAID ==
[2021-12-04] MEDS ORDERED: Ondansetron 4 MG/2 ML SDV IVPUSH ONE (16:15)
[2021-12-04] MEDS ORDERED: Penicillin G Potassium 5,000,000 Unit Vial IV ONE (18:05)
[2021-12-05] MEDS ORDERED: Ibuprofen 800 MG Tab PO ONE (04:18)
[2021-12-05] MEDS ORDERED: Acetaminophen 325 MG Tab PO ONE (08:32)
[2021-12-05] MEDS ORDERED: Docusate Sodium 100 MG Cap PO ONE (08:32)
[2021-12-05] MEDS ORDERED: Prenatal Multivitamin with Calcium/Folic Acid/Iron Tab PO ONE (08:32)
== END 2021-12-06 12:00 | disposition home or self-care (01) | DRG 807 ==
LOC: DL.OBCHECK 07:01 → DL.ZCENSUS 07:11 → OBSVTOIN 20:30
PROVIDERS: ADMIT Family Medicine; ATTEND Family Medicine
PROC: 10E0XZZ Delivery of Products of Conception, External Approach (ICD-10-PCS; principal; 2021-12-04)
PROC: 3E0R3BZ Introduction of Anesthetic Agent into Spinal Canal, Percutaneous Approach (ICD-10-PCS; 2021-12-04)
DX: O42.02 Full-term premature rupture of membranes, onset of labor within 24 hours of rupture (principal); Z37.0 Single live birth; O99.824 Streptococcus B carrier state complicating childbirth; O99.02 Anemia complicating childbirth; O91.113 Abscess of breast associated with pregnancy, third trimester; O99.214 Obesity complicating childbirth; D50.9 Iron deficiency anemia, unspecified; Z3A.39 39 weeks gestation of pregnancy
CPT/HCPCS: 01967; 36415; 51701; 59409; 84112; 85027; A9270-GY; J2405; J2540; U0002

== ENCOUNTER 2021-12-07 10:13 | Emergency (ER) | payer MEDICAID ==
[2021-12-07] MEDS ORDERED: Ondansetron 4 MG/2 ML SDV IVPUSH ONE (10:44)
[2021-12-07] MEDS ORDERED: HYDROmorphone 1 MG/ML Syringe IVPUSH ONE (10:44)
[2021-12-07] MEDS ORDERED: Vancomycin 1 GM, Vancomycin 500 MG in Sodium Chloride 0.9% 500 ML IV ONE (10:44)
[2021-12-07] MEDS ORDERED: diphenhydrAMINE 50 MG/ML SDV IVPUSH ONE (10:44)
[2021-12-07] MEDS ORDERED: Lidocaine 1% 10 ML MDV INJECT ONE (10:44)
[2021-12-07] MEDS ORDERED: Bupivacaine 0.5% 30 ML SDV INJECT ONE (10:44)
== END 2021-12-07 12:39 | disposition home or self-care (01) ==
LOC: DL.ED 10:13
DX: N61.1 Abscess of the breast and nipple (principal); N60.81 Other benign mammary dysplasias of right breast; E66.9 Obesity, unspecified
CPT/HCPCS: 10060; 10061; 87070; 96365; 96375; 99283; 99284; J1170; J1200; J2405; J3370; J3490; J7040

== ENCOUNTER 2022-06-14 11:22 | Emergency (ER) | payer MEDICAID ==
[2022-06-14 12:21] VITALS: BP 125/84; PULSE 68
== END 2022-06-14 12:24 | disposition home or self-care (01) ==
LOC: DL.ED 11:22
DX: H66.012 Acute suppurative otitis media with spontaneous rupture of ear drum, left ear (principal); E66.9 Obesity, unspecified; Z68.39 Body mass index [BMI] 39.0-39.9, adult; Z88.5 Allergy status to narcotic agent
CPT/HCPCS: 99282; 99283

== ENCOUNTER 2023-10-21 12:01 | Emergency (ER) | payer SELFPAY | END 2023-10-21 12:15 | disposition left against medical advice (07) | LOC: DL.ED 12:01 | DX: Z53.21 Procedure and treatment not carried out due to patient leaving prior to being seen by health care provider (principal) ==

== ENCOUNTER 2023-11-18 07:18 | Emergency (ER) | payer SELFPAY ==
[2023-11-18 08:21] LABS: A/G RATIO 1.1; ALANINE AMINOTRANSFERASE,ALT 17 U/L (14-59); ALBUMIN 3.8 g/dL (3.4-5.0); ALKALINE PHOSPHATASE 40 U/L (46-116); ASPARTATE AMNIOTRANSFERASE,AST 8 U/L (15-37); BILIRUBIN TOTAL 0.6 mg/dL (0.2-1.0); BLOOD UREA NITROGEN,BUN 13 mg/dL (7-18); BUN/CREATININE RATIO 17.3 (No establ ref range); CARBON DIOXIDE,CO2 26 mmol/L (21-32); CHLORIDE,CL 105 mmol/L (98-107); CREATININE 0.75 mg/dL (0.55-1.02); GLUCOSE RANDOM 88 mg/dL (70-99); MAGNESIUM 1.8 mg/dL (1.8-2.4); PROTEIN TOTAL,TP 7.4 g/dL (6.4-8.2); SODIUM,NA 139 mmol/L (136-145)
[2023-11-18 08:32] LABS: ACETAMINOPHEN 0 ug/mL (10-30 (Therapeutic)); ESTIMATED GFR 113 mL/min (>=60)
[2023-11-18 08:44] LABS: BASOPHILS PERCENT AUTO 0.1 % (0.0-1.0); EOSINOPHILS PERCENT AUTO 2.8 % (1.0-3.0); HEMATOCRIT 38.6 % (37.0-47.0); HEMOGLOBIN 12.8 g/dL (12.0-16.0); LYMPHOCYTES PERCENT AUTO 31.8 % (20.5-50.1); MEAN CORPUSCULAR HEMOGLOBIN 28.3 pg (27.0-34.0); MEAN CORPUSCULAR HGB CONC 33.2 g/dL (33.0-35.0); MEAN CORPUSCULAR VOLUME 85.2 fL (80-100); MONOCYTES PERCENT AUTO 8.5 % (2-8); NEUTROPHILS PERCENT AUTO 56.8 % (42.2-75.2); PLATELET COUNT,PLT 323 10^3/uL (150-450); RED BLOOD CELL COUNT 4.53 10^6/uL (4.2-5.4); WHITE BLOOD CELL COUNT,WBC 7.9 10^3/uL (5.0-10.0)
[2023-11-18 09:46] LABS: AMPHETAMINES,URINE NEGATIVE (NEGATIVE); BARBITURATES,URINE NEGATIVE (NEGATIVE); BENZODIAZEPINE,URINE NEGATIVE (NEGATIVE); MDMA (ECSTASY), URINE NEGATIVE (NEGATIVE); METHADONE,URINE NEGATIVE (NEGATIVE); METHAMPHETAMINES,URINE NEGATIVE (NEGATIVE); OPIATES,URINE NEGATIVE (NEGATIVE); OXYCODONE,URINE NEGATIVE (NEGATIVE); PHENCYCLIDINE,URINE NEGATIVE (NEGATIVE); TCA,URINE NEGATIVE (NEGATIVE)
[2023-11-18 09:58] VITALS: BP 142/98; PULSE 72
[2023-11-18 11:06] LABS: CORONAVIRUS COVID-19 NAA NEGATIVE (NEGATIVE); INFLUENZA A NAA NEGATIVE (NEGATIVE); INFLUENZA B NAA NEGATIVE (NEGATIVE)
== END 2023-11-18 13:39 | disposition other institution (70) ==
LOC: DL.ED 07:18
DX: R45.851 Suicidal ideations (principal); E66.9 Obesity, unspecified; Z88.5 Allergy status to narcotic agent; Z68.39 Body mass index [BMI] 39.0-39.9, adult
CPT/HCPCS: 0240U; 36415; 80053; 80143; 80179; 80305-QW; 81025; 83735; 85025; 93005; 93010; 99285

== ENCOUNTER 2023-12-02 10:03 | Emergency (ER) | payer SELFPAY ==
[2023-12-02] MEDS: Penicillin V Potassium 250 MG Tab PO SCH (10:45)
[2023-12-02] MEDS: Acetaminophen/Codeine 300-30 MG Tab PO ONE (10:45)
[2023-12-02 11:04] VITALS: BP 147/102; PULSE 79
== END 2023-12-02 10:56 | disposition home or self-care (01) ==
LOC: DL.ED 10:03
DX: K04.7 Periapical abscess without sinus (principal); Z68.41 Body mass index [BMI] 40.0-44.9, adult; E66.9 Obesity, unspecified; Z79.899 Other long term (current) drug therapy; Z88.5 Allergy status to narcotic agent
CPT/HCPCS: 99283; A9270

== ENCOUNTER 2024-01-12 09:07 | Emergency (ER) | payer SELFPAY ==
[2024-01-12 09:24] VITALS: BP 156/100; PULSE 76
[2024-01-12] MEDS: traMADol 50 MG Tab PO ONE (10:00)
[2024-01-12] MEDS: Take Home: traMADol 50 MG, 4 Tab Pack PO ONE (10:11)
== END 2024-01-12 10:22 | disposition home or self-care (01) ==
LOC: DL.ED 09:07
DX: K02.9 Dental caries, unspecified (principal); E66.9 Obesity, unspecified; Z90.89 Acquired absence of other organs; Z88.5 Allergy status to narcotic agent; Z68.41 Body mass index [BMI] 40.0-44.9, adult
CPT/HCPCS: 99282; A9270

== ENCOUNTER 2024-06-12 16:46 | Emergency (ER) | payer SELFPAY ==
[2024-06-12 17:11] LABS: APPEARANCE,URINE CLEAR (CLEAR); BILIRUBIN,URINE NEGATIVE (NEGATIVE); COLOR,URINE YELLOW (YELLOW); GLUCOSE,URINE NEGATIVE (NEGATIVE); KETONES,URINE NEGATIVE (NEGATIVE); LEUKOCYTE ESTERASE,URINE TRACE (NEGATIVE); NITRITE,URINE NEGATIVE (NEGATIVE); OCCULT BLOOD,URINE NEGATIVE (NEGATIVE); PROTEIN,URINE NEGATIVE (NEGATIVE); UROBILINOGEN,URINE 0.2 mg/dL (0.2-1.0)
[2024-06-12 17:17] LABS: BACTERIA,URINE FEW /HPF (0-FEW/HPF); EPITHELIAL CELLS,URINE FEW /HPF (NOT SEEN); MUCUS,URINE FEW /LPF (NOT SEEN); RBC,URINE 0-5 /HPF (0-5)
[2024-06-12] MEDS: Take Home: Cephalexin 500 MG Cap, 6 Cap Pack PO ONE (17:39)
[2024-06-12 17:45] VITALS: BP 141/83; PULSE 92
[2024-06-15 13:43] LABS: C.TRACHOMATIS BY TMA Negative (Negative); M GENITALIUM Negative (Negative); M GENITALIUM SOURCE Urine; N.GONORRHOEAE BY TMA Negative (Negative); SOURCE Urine
== END 2024-06-12 17:45 | disposition home or self-care (01) ==
LOC: DL.ED 16:46
DX: N30.00 Acute cystitis without hematuria (principal); E66.9 Obesity, unspecified; Z32.01 Encounter for pregnancy test, result positive; Z88.8 Allergy status to other drugs, medicaments and biological substances; Z68.39 Body mass index [BMI] 39.0-39.9, adult
CPT/HCPCS: 81001; 81025; 87086; 87491; 87563; 87591; 99284; A9270

== ENCOUNTER 2024-07-15 05:41 | Emergency (ER) | payer SELFPAY ==
[2024-07-15] MEDS: Metoclopramide 10 MG/2 ML SDV IVPUSH ONE (06:11)
[2024-07-15] MEDS: Sodium Chloride 0.9% 1,000 ML IV ONE ×2 (06:12→07:48)
[2024-07-15 06:14] LABS: BASOPHILS PERCENT AUTO 0.1 % (0.0-1.0); EOSINOPHILS PERCENT AUTO 1.6 % (1.0-3.0); HEMATOCRIT 39.9 % (37.0-47.0); HEMOGLOBIN 13.2 g/dL (12.0-16.0); LYMPHOCYTES PERCENT AUTO 25.8 % (20.5-50.1); MEAN CORPUSCULAR HEMOGLOBIN 28.2 pg (27.0-34.0); MEAN CORPUSCULAR HGB CONC 33.1 g/dL (33.0-35.0); MEAN CORPUSCULAR VOLUME 85.3 fL (80-100); MONOCYTES PERCENT AUTO 9.6 % (2-8); NEUTROPHILS PERCENT AUTO 62.9 % (42.2-75.2); PLATELET COUNT,PLT 303 10^3/uL (150-450); RED BLOOD CELL COUNT 4.68 10^6/uL (4.2-5.4); WHITE BLOOD CELL COUNT,WBC 8.1 10^3/uL (5.0-10.0)
[2024-07-15 06:31] LABS: ALANINE AMINOTRANSFERASE,ALT 17 U/L (14-59); ALBUMIN 4.1 g/dL (3.4-5.0); ALKALINE PHOSPHATASE 33 U/L (46-116); ASPARTATE AMNIOTRANSFERASE,AST 7 U/L (15-37); BILIRUBIN TOTAL 0.9 mg/dL (0.2-1.0); BLOOD UREA NITROGEN,BUN 9 mg/dL (7-18); BUN/CREATININE RATIO 12.7 (No establ ref range); CALCIUM 9.9 mg/dL (8.5-10.1); CARBON DIOXIDE,CO2 27 mmol/L (21-32); CHLORIDE,CL 101 mmol/L (98-107); CREATININE 0.71 mg/dL (0.55-1.02); ESTIMATED GFR 120 mL/min (>=60); GLUCOSE RANDOM 100 mg/dL (70-99); LIPASE 15 U/L (16-77); PROTEIN TOTAL,TP 8.1 g/dL (6.4-8.2); SODIUM,NA 137 mmol/L (136-145)
[2024-07-15 07:14] LABS: APPEARANCE,URINE CLEAR (CLEAR); BILIRUBIN,URINE SMALL (NEGATIVE); COLOR,URINE YELLOW (YELLOW); GLUCOSE,URINE NEGATIVE (NEGATIVE); KETONES,URINE >=160 (NEGATIVE); LEUKOCYTE ESTERASE,URINE NEGATIVE (NEGATIVE); NITRITE,URINE NEGATIVE (NEGATIVE); OCCULT BLOOD,URINE NEGATIVE (NEGATIVE); PROTEIN,URINE 30 (NEGATIVE); UROBILINOGEN,URINE 0.2 mg/dL (0.2-1.0)
[2024-07-15 07:42] LABS: EPITHELIAL CELLS,URINE MODERATE /HPF (NOT SEEN); RBC,URINE 0-5 /HPF (0-5); WBC,URINE 0-5 /HPF (0-5/HPF)
[2024-07-15 07:43] LABS: AMORPHOUS SEDIMENT,URINE MODERATE /HPF (NOT SEEN); BACTERIA,URINE MODERATE /HPF (0-FEW/HPF); MUCUS,URINE MODERATE /LPF (NOT SEEN)
[2024-07-15 07:44] VITALS: PULSE 78
[2024-07-15] MEDS: Ondansetron 4 MG/2 ML SDV IVPUSH ONE (07:48)
[2024-07-15 08:33] VITALS: BP 103/90
== END 2024-07-15 08:43 | disposition still patient (30) ==
LOC: DL.ED 05:41
DX: O21.9 Vomiting of pregnancy, unspecified (principal); E66.9 Obesity, unspecified; Z88.5 Allergy status to narcotic agent; Z3A.08 8 weeks gestation of pregnancy
CPT/HCPCS: 36415; 80053; 81001; 83690; 85025; 96361; 96374; 96375; 99284; J2405; J2765; J7030; 99282

== ENCOUNTER 2024-08-02 08:04 | Emergency (ER) | payer SELFPAY ==
[2024-08-02 08:19] VITALS: BP 147/87; PULSE 94
== END 2024-08-02 08:53 | disposition home or self-care (01) ==
LOC: DL.ED 08:04
DX: O20.9 Hemorrhage in early pregnancy, unspecified (principal); E66.9 Obesity, unspecified; Z68.38 Body mass index [BMI] 38.0-38.9, adult; Z88.5 Allergy status to narcotic agent; Z3A.11 11 weeks gestation of pregnancy
CPT/HCPCS: 99283

== ENCOUNTER 2024-08-03 18:10 | Emergency (ER) | payer SELFPAY ==
[2024-08-03 18:42] LABS: BASOPHILS PERCENT AUTO 0.1 % (0.0-1.0); EOSINOPHILS PERCENT AUTO 0.1 % (1.0-3.0); HEMATOCRIT 40.1 % (37.0-47.0); HEMOGLOBIN 13.7 g/dL (12.0-16.0); LYMPHOCYTES PERCENT AUTO 11.7 % (20.5-50.1); MEAN CORPUSCULAR HEMOGLOBIN 28.9 pg (27.0-34.0); MEAN CORPUSCULAR HGB CONC 34.2 g/dL (33.0-35.0); MEAN CORPUSCULAR VOLUME 84.6 fL (80-100); MONOCYTES PERCENT AUTO 3.8 % (2-8); NEUTROPHILS PERCENT AUTO 84.3 % (42.2-75.2); PLATELET COUNT,PLT 316 10^3/uL (150-450); RED BLOOD CELL COUNT 4.74 10^6/uL (4.2-5.4)
[2024-08-03 18:44] LABS: APPEARANCE,URINE CLOUDY (CLEAR); BILIRUBIN,URINE SMALL (NEGATIVE); COLOR,URINE DARK YELLOW (YELLOW); GLUCOSE,URINE NEGATIVE (NEGATIVE); KETONES,URINE >=160 (NEGATIVE); LEUKOCYTE ESTERASE,URINE NEGATIVE (NEGATIVE); NITRITE,URINE NEGATIVE (NEGATIVE); OCCULT BLOOD,URINE MODERATE (NEGATIVE); PROTEIN,URINE 100 (NEGATIVE); UROBILINOGEN,URINE 0.2 mg/dL (0.2-1.0)
[2024-08-03 18:54] LABS: AMORPHOUS SEDIMENT,URINE FEW /HPF (NOT SEEN); BACTERIA,URINE MODERATE /HPF (0-FEW/HPF); EPITHELIAL CELLS,URINE MANY /HPF (NOT SEEN); MUCUS,URINE MANY /LPF (NOT SEEN); RBC,URINE 0-5 /HPF (0-5); WBC,URINE 0-5 /HPF (0-5/HPF)
[2024-08-03 19:05] LABS: ANION GAP 16.9 mEq/L (7-13); BILIRUBIN TOTAL 0.7 mg/dL (0.2-1.0); BUN/CREATININE RATIO 10.4 (No establ ref range); CREATININE 0.67 mg/dL (0.55-1.02); EST CRCL DRUG DOSING (CG) 128.36 mL/min; LACTIC ACID 0.9 mmol/L (0.4-2.0); MAGNESIUM 1.9 mg/dL (1.8-2.4); POTASSIUM,K 3.9 mmol/L (3.5-5.1); PROTEIN TOTAL,TP 8.1 g/dL (6.4-8.2)
[2024-08-03] MEDS: Ondansetron 4 MG/2 ML SDV IVPUSH ONE (19:46)
[2024-08-03] MEDS: Sodium Chloride 0.9% 1,000 ML IV ONE (19:46)
[2024-08-03] MEDS: methylPREDNISolone Sodium Succinate 125 MG/2 ML SDV IVPUSH ONE (21:35)
[2024-08-03] MEDS: Take Home: Ondansetron 4 MG Tab.DIS, 5 Tab Pack PO ONE (21:50)
[2024-08-03 22:01] VITALS: BP 142/85; PULSE 83
== END 2024-08-03 21:57 | disposition home or self-care (01) ==
LOC: DL.ED 18:10
DX: O20.9 Hemorrhage in early pregnancy, unspecified (principal); O21.8 Other vomiting complicating pregnancy; Z88.5 Allergy status to narcotic agent; Z86.16 Personal history of COVID-19; Z3A.11 11 weeks gestation of pregnancy
CPT/HCPCS: 36415; 80053; 81001; 83605; 83735; 84443; 85025; 96361; 96374; 96375; 99284-25; J2405; J2919; J7030; Q0162

== ENCOUNTER 2024-08-05 05:47 | Emergency (ER) | payer SELFPAY ==
[2024-08-05 06:29] VITALS: BP 138/83; PULSE 108
== END 2024-08-05 08:00 | disposition left against medical advice (07) ==
LOC: DL.ED 05:47
DX: Z53.21 Procedure and treatment not carried out due to patient leaving prior to being seen by health care provider (principal)

== ENCOUNTER 2024-08-26 07:51 | Emergency (ER) | payer SELFPAY ==
[2024-08-26 08:19] VITALS: BP 148/88; PULSE 95
[2024-08-26 08:21] LABS: EOSINOPHILS PERCENT AUTO 0.5 % (1.0-3.0); HEMATOCRIT 39.2 % (37.0-47.0); HEMOGLOBIN 13.5 g/dL (12.0-16.0); LYMPHOCYTES PERCENT AUTO 15.4 % (20.5-50.1); MEAN CORPUSCULAR HEMOGLOBIN 29.1 pg (27.0-34.0); MEAN CORPUSCULAR HGB CONC 34.4 g/dL (33.0-35.0); MEAN CORPUSCULAR VOLUME 84.5 fL (80-100); MONOCYTES PERCENT AUTO 6.1 % (2-8); PLATELET COUNT,PLT 319 10^3/uL (150-450); RED BLOOD CELL COUNT 4.64 10^6/uL (4.2-5.4); WHITE BLOOD CELL COUNT,WBC 9.3 10^3/uL (5.0-10.0)
[2024-08-26 08:41] LABS: A/G RATIO 0.9; ALBUMIN 3.5 g/dL (3.4-5.0); ANION GAP 16.8 mEq/L (7-13); BILIRUBIN TOTAL 0.8 mg/dL (0.2-1.0); BUN/CREATININE RATIO 8.1 (No establ ref range); CALCIUM 9.4 mg/dL (8.5-10.1); CREATININE 0.74 mg/dL (0.55-1.02); EST CRCL DRUG DOSING (CG) 120.4 mL/min; MAGNESIUM 1.9 mg/dL (1.8-2.4); POTASSIUM,K 3.8 mmol/L (3.5-5.1); PROTEIN TOTAL,TP 7.4 g/dL (6.4-8.2)
[2024-08-26 08:46] LABS: APPEARANCE,URINE CLOUDY (CLEAR); BILIRUBIN,URINE NEGATIVE (NEGATIVE); COLOR,URINE DARK YELLOW (YELLOW); GLUCOSE,URINE NEGATIVE (NEGATIVE); KETONES,URINE 80 (NEGATIVE); LEUKOCYTE ESTERASE,URINE TRACE (NEGATIVE); NITRITE,URINE NEGATIVE (NEGATIVE); OCCULT BLOOD,URINE SMALL (NEGATIVE); PROTEIN,URINE 100 (NEGATIVE)
[2024-08-26 08:51] LABS: AMPHETAMINES,URINE NEGATIVE (NEGATIVE); BARBITURATES,URINE NEGATIVE (NEGATIVE); BENZODIAZEPINE,URINE NEGATIVE (NEGATIVE); MDMA (ECSTASY), URINE NEGATIVE (NEGATIVE); METHADONE,URINE NEGATIVE (NEGATIVE); METHAMPHETAMINES,URINE NEGATIVE (NEGATIVE); OPIATES,URINE NEGATIVE (NEGATIVE); OXYCODONE,URINE NEGATIVE (NEGATIVE); PHENCYCLIDINE,URINE NEGATIVE (NEGATIVE); TCA,URINE NEGATIVE (NEGATIVE)
[2024-08-26 08:55] LABS: BACTERIA,URINE MODERATE /HPF (0-FEW/HPF); MUCUS,URINE MANY /LPF (NOT SEEN)
[2024-08-26 08:56] LABS: EPITHELIAL CELLS,URINE MANY /HPF (NOT SEEN); RBC,URINE 0-5 /HPF (0-5)
== END 2024-08-26 08:35 | disposition home or self-care (01) ==
LOC: DL.ED 07:51
DX: O21.9 Vomiting of pregnancy, unspecified (principal); R11.2 Nausea with vomiting, unspecified; I10 Essential (primary) hypertension; E66.9 Obesity, unspecified; Z88.5 Allergy status to narcotic agent; Z86.16 Personal history of COVID-19; Z3A.14 14 weeks gestation of pregnancy; Z68.35 Body mass index [BMI] 35.0-35.9, adult
CPT/HCPCS: 36415; 80053; 80305-QW; 81001; 83735; 85025; 87086; 87088; 87186; 99283; 99284

== ENCOUNTER 2024-08-27 13:31 | Emergency (ER) | payer SELFPAY ==
[2024-08-27 13:42] VITALS: BP 134/86; PULSE 67
== END 2024-08-27 15:07 | disposition home or self-care (01) ==
LOC: DL.ED 13:31
DX: O23.41 Unspecified infection of urinary tract in pregnancy, first trimester (principal); N30.00 Acute cystitis without hematuria; O21.9 Vomiting of pregnancy, unspecified; Z88.5 Allergy status to narcotic agent; Z86.16 Personal history of COVID-19; Z3A.14 14 weeks gestation of pregnancy
CPT/HCPCS: 99283

== ENCOUNTER 2024-08-29 22:22 | Emergency (ER) | payer SELFPAY ==
[2024-08-29] MEDS ORDERED: Sodium Chloride 0.9% 10 ML Syringe FLUSH PRN (22:39)
[2024-08-29] MEDS: Ondansetron 4 MG/2 ML SDV IVPUSH ONE (23:07)
[2024-08-29 23:10] LABS: BASOPHILS PERCENT AUTO 0.0 % (0.0-1.0); EOSINOPHILS PERCENT AUTO 0.0 % (1.0-3.0); LYMPHOCYTES PERCENT AUTO 11.8 % (20.5-50.1); MONOCYTES PERCENT AUTO 6.9 % (2-8); NEUTROPHILS PERCENT AUTO 81.3 % (42.2-75.2); PLATELET COUNT,PLT 309 10^3/uL (150-450); RED BLOOD CELL COUNT 4.37 10^6/uL (4.2-5.4); WHITE BLOOD CELL COUNT,WBC 9.6 10^3/uL (5.0-10.0)
[2024-08-29] MEDS: cefTRIAXone 1 GM, Lidocaine 1% 2.1 ML IV ONE (23:23)
[2024-08-29 23:28] LABS: BLOOD UREA NITROGEN,BUN 7.0 mg/dL (7-18); CARBON DIOXIDE,CO2 28.0 mmol/L (21-32); CHLORIDE,CL 102.0 mmol/L (98-107); CREATININE 0.78 mg/dL (0.55-1.02); EST CRCL DRUG DOSING (CG) 110.25 mL/min; GLUCOSE RANDOM 102.0 mg/dL (70-99); POTASSIUM,K 3.4 mmol/L (3.5-5.1); SODIUM,NA 139.0 mmol/L (136-145)
[2024-08-29 23:46] LABS: APPEARANCE,URINE CLOUDY (CLEAR); GLUCOSE,URINE NEGATIVE (NEGATIVE); OCCULT BLOOD,URINE NEGATIVE (NEGATIVE)
[2024-08-29 23:55] LABS: ESTIMATED GFR 107.0 mL/min (>=60)
[2024-08-30 00:06] LABS: EPITHELIAL CELLS,URINE MANY /HPF (NOT SEEN)
[2024-08-30 00:08] LABS: A/G RATIO 0.92; ALANINE AMINOTRANSFERASE,ALT 23.0 U/L (14-59); ASPARTATE AMNIOTRANSFERASE,AST 9.0 U/L (15-37); BILIRUBIN TOTAL 0.8 mg/dL (0.2-1.0); PROTEIN TOTAL,TP 7.1 g/dL (6.4-8.2)
[2024-08-30 00:11] LABS: LACTIC ACID 1.0 mmol/L (0.4-2.0)
[2024-08-30] MEDS: Potassium Chloride 10 MEQ Tab.ER PO ONE (00:37)
[2024-08-30] MEDS: Ondansetron 4 MG/2 ML SDV IVPUSH ONE (00:37)
[2024-08-30 00:47] VITALS: BP 139/79; PULSE 69
[2024-08-30] MEDS: Take Home: Ondansetron 4 MG Tab.DIS, 5 Tab Pack PO ONE (00:53)
== END 2024-08-30 00:54 | disposition home or self-care (01) ==
LOC: DL.ED 22:22
DX: O23.42 Unspecified infection of urinary tract in pregnancy, second trimester (principal); O99.891 Other specified diseases and conditions complicating pregnancy; E87.6 Hypokalemia; Z88.5 Allergy status to narcotic agent; Z3A.17 17 weeks gestation of pregnancy
CPT/HCPCS: 36415; 80053; 81001; 83605; 83690; 84145; 85025; 87040; 96361; 96374; 96375; 96376; 99284; 99284-25; J0696; J2405; J7030; Q0162

== ENCOUNTER 2024-09-20 08:44 | Emergency (ER) | payer MEDICAID ==
[2024-09-20 09:09] LABS: APPEARANCE,URINE SLIGHTLY CLOUDY (CLEAR); GLUCOSE,URINE NEGATIVE (NEGATIVE); OCCULT BLOOD,URINE NEGATIVE (NEGATIVE)
[2024-09-20 09:20] LABS: EPITHELIAL CELLS,URINE MANY /HPF (NOT SEEN)
[2024-09-20 10:22] VITALS: BP 136/102; PULSE 94
== END 2024-09-20 10:26 | disposition home or self-care (01) ==
LOC: DL.ED 08:44
DX: O99.891 Other specified diseases and conditions complicating pregnancy (principal); R10.30 Lower abdominal pain, unspecified; Z88.5 Allergy status to narcotic agent; Z86.16 Personal history of COVID-19; Z3A.18 18 weeks gestation of pregnancy
CPT/HCPCS: 81001; 99283; 99284